=== PATIENT | female | born 1940 | race Caucasian/White ===

== ENCOUNTER 2021-05-18 19:40 | Emergency (ER) | payer MEDICARE, BC, SELFPAY ==
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
[2021-05-18 19:54] VITALS: BP 195/104; PULSE 89; RESP 18; O2SAT 95; BMI 32.8
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
--- NOTE | 2021-05-18 21:19 | PC.NURSE ---
patient ambulated with steady gait for approx 20 feet.
[2021-05-18 22:02] VITALS: RESP 18
== END 2021-05-18 22:04 | disposition home or self-care (01) ==
PROVIDERS: Emergency Provider Emergency Medicine
DX: S13.4XXA Sprain of ligaments of cervical spine, initial encounter (principal); V89.2XXA Person injured in unspecified motor-vehicle accident, traffic, initial encounter
CPT/HCPCS: 70450; 72125; 72131; 73502; 99283